=== PATIENT | female | born 1985 | race Caucasian/White ===

== ENCOUNTER 2018-10-01 21:13 | Emergency (ER) | payer MEDICAID ==
[2018-10-01 21:33] LABS: URINE BLOOD (Dip) POC Negative (NEGATIVE); URINE GLUCOSE (Dip) POC Negative (NEGATIVE); URINE KETONES (Dip) POC Negative (NEGATIVE); URINE LEUKOCYTE EST (Dip) POC Negative (NEGATIVE); URINE NITRITE (Dip) POC Negative (NEGATIVE); URINE TOTAL PROTEIN POC Negative (NEGATIVE)
[2018-10-01] MEDS: KETOROLAC 30 MG INJ IV (22:23)
== END 2018-10-01 23:39 | disposition home or self-care (01) ==
LOC: E/R 21:13
DX: R07.9 Chest pain, unspecified (principal)
CPT/HCPCS: 71045; 81003; 81025; 93005; 96374; 99284-25